=== PATIENT | female | born 1985 | race Two or more races ===

== ENCOUNTER 2024-01-06 10:07 | Outpatient (CLI) | payer OTHER | END 2024-01-06 10:08 | disposition home or self-care (01) | LOC: PRENATAL 10:07 | PROVIDERS: ATTEND Obstetrics & Gynecology Maternal & Fetal Medicine | DX: O35.9XX0 Maternal care for (suspected) fetal abnormality and damage, unspecified, not applicable or unspecified (principal); O35.3XX0 Maternal care for (suspected) damage to fetus from viral disease in mother, not applicable or unspecified; O09.519 Supervision of elderly primigravida, unspecified trimester; O99.210 Obesity complicating pregnancy, unspecified trimester; Z3A.20 20 weeks gestation of pregnancy ==

== ENCOUNTER → 2024-03-02 09:17 | Outpatient (CLI) | payer OTHER | END | disposition home or self-care (01) | LOC: PRENATAL 09:17 | PROVIDERS: ATTEND Obstetrics & Gynecology Maternal & Fetal Medicine | DX: O26.849 Uterine size-date discrepancy, unspecified trimester (principal); O09.519 Supervision of elderly primigravida, unspecified trimester; O99.210 Obesity complicating pregnancy, unspecified trimester; O99.019 Anemia complicating pregnancy, unspecified trimester; Z3A.28 28 weeks gestation of pregnancy ==

== ENCOUNTER → 2024-04-12 08:57 | Outpatient (CLI) | payer OTHER | END | disposition home or self-care (01) | LOC: PRENATAL 08:57 | PROVIDERS: ATTEND Obstetrics & Gynecology Maternal & Fetal Medicine | DX: O26.849 Uterine size-date discrepancy, unspecified trimester (principal); O36.8199 Decreased fetal movements, unspecified trimester, other fetus; O09.519 Supervision of elderly primigravida, unspecified trimester; O99.210 Obesity complicating pregnancy, unspecified trimester; Z3A.34 34 weeks gestation of pregnancy ==

== ENCOUNTER 2024-05-13 14:15 | Inpatient (IN) | payer OTHER ==
[~2024-05-13] VITALS: Ht 160 cm; Wt 3.2 kg
[2024-05-21 12:50] VITALS: BP 134/77
[2024-05-21] MEDS ORDERED: AMPICILLIN SODIUM 2,000 MG VIAL IV STA (14:00)
[2024-05-21] MEDS ORDERED: PRENATAL TABLE1 EAC1 (14:06)
[2024-05-21] MEDS ORDERED: RINGERS SOLUTION,LACTATED 1,000 ML IV SCH ×2 (14:15→20:30)
[2024-05-21] MEDS ORDERED: ECOTRIN81 MG PO (15:26)
[2024-05-21] MEDS ORDERED: IRON325 MG PO (15:27)
[2024-05-21 15:28] VITALS: BP 123/56
[2024-05-21 16:55] LABS: INR 0.94; PARTIAL THROMBOPLASTIN TIME 30.3 SECONDS (22.0-34.0); PROTHROMBIN TIME 10.3 SECONDS (9.0-11.5)
[2024-05-21] MEDS ORDERED: AMPICILLIN SODIUM 1,000 MG VIAL IV SCH (17:00)
[2024-05-21] MEDS ORDERED: PROMETHAZINE HCL 25 MG/ML AMPUL IM PRN (20:30)
[2024-05-21] MEDS ORDERED: MEPERIDINE HCL/PF 50 MG/ML VIAL IM PRN (20:30)
[2024-05-21] MEDS ORDERED: KETOROLAC TROMETHAMINE 60 MG VIAL IM STA (20:30)
[2024-05-21] MEDS ORDERED: CHLORHEXIDINE GLUCONATE 120 ML BOTTLE TP SCH (20:30)
[2024-05-21] MEDS ORDERED: OXYTOCIN 1,000 ML IV SCH (20:30)
[2024-05-21 21:44] VITALS: BP 120/77
[2024-05-21] MEDS ORDERED: ERYTHROMYCIN BASE OPHT 1GM EACH TUBE OP ONE (23:00)
[2024-05-21] MEDS ORDERED: OXYTOCIN 10 UNITS/ML VIAL IV ONE (23:00)
[2024-05-22 01:00] VITALS: BP 130/75
[2024-05-22 02:41] LABS: HEMOGLOBIN 12.2 g/dL (12.0-15.00); MEAN CELL VOLUME 74.9 fL (80.00-100.00); MEAN CORPUSCULAR HEMOGLOBIN 24.1 pg (27.00-32.0); MEAN CORPUSCULAR HGB CONC 32.2 g/dl (32.0-36.0); PLATELET COUNT 163 K/uL (150-450); RED BLOOD COUNT 5.07 M/uL (4.00-6.00); RED CELL DISTRIBUTION WIDTH 20.8 % (11.5-14.5)
[2024-05-22] MEDS ORDERED: OxyCODONE HCL/APAP UD (PERCOCET) PO PRN (09:00)
[2024-05-22 17:24] VITALS: BP 134/83
[2024-05-22 21:22] VITALS: BP 129/77
[2024-05-23] VITALS: BP 139/76
[2024-05-23 04:00] VITALS: BP 133/74
[2024-05-23 08:36] VITALS: BP 131/80
[2024-05-23 13:16] VITALS: BP 131/80
[2024-05-23 16:23] VITALS: BP 139/75
[2024-05-24 01:10] VITALS: BP 131/79
[2024-05-24] MEDS ORDERED: IBUPROFEN800 MG PO (06:38)
[2024-05-24 08:00] VITALS: BP 116/73
== END 2024-05-24 13:21 | disposition home or self-care (01) | DRG 788 ==
LOC: LDR 05-21 13:01 → OB/GYN 05-21 18:57
PROVIDERS: Obstetrics & Gynecology; ADMIT Specialist; ATTEND Specialist
PROC: 4A1HXCZ Monitoring of Products of Conception, Cardiac Rate, External Approach (ICD-10-PCS; 2024-05-21)
PROC: 10D00Z1 Extraction of Products of Conception, Low, Open Approach (ICD-10-PCS; principal; 2024-05-21 18:00)
DX: O42.02 Full-term premature rupture of membranes, onset of labor within 24 hours of rupture (principal); Z3A.39 39 weeks gestation of pregnancy; Z37.0 Single live birth; Z20.822 Contact with and (suspected) exposure to COVID-19

== ENCOUNTER 2024-05-21 11:29 | Outpatient (CLI) | payer OTHER ==
[2024-05-21 11:30] VITALS: BP 134/77
[2024-05-21] MEDS ORDERED: RINGERS SOLUTION,LACTATED 1,000 ML IV SCH (12:15)
[2024-05-21 12:43] LABS: PH,URINE 5.5 (5.0-8.0); URINE APPEARANCE Clear; URINE BILIRRUBIN Negative (NEGATIVE); URINE BLOOD Large; URINE COLOR Dark Yellow; URINE GLUCOSE Negative (NEGATIVE); URINE KETONE Trace (NEGATIVE); URINE LEUKOCYTE Trace; URINE NITRATE Negative; URINE PROTEIN 30 (NEGATIVE)
[2024-05-21 12:46] LABS: URINE BACTERIA 107.1 uL (0.0-1933); URINE EPITHELIAL CELLS 24.2 uL (0.0-38.8); URINE WBC 37.2 uL (0.0-23.2)
[2024-05-21 12:59] LABS: URINE CAST 0.15 uL (0.0-1.40)
[2024-05-21 13:13] LABS: HEMATOCRIT 38.4 % (36.0-45.00); HEMOGLOBIN 12.4 g/dL (12.0-15.00); MEAN CORPUSCULAR HEMOGLOBIN 24.1 pg (27.00-32.0); MEAN CORPUSCULAR HGB CONC 32.1 g/dl (32.0-36.0); PLATELET COUNT 161 K/uL (150-450); RED BLOOD COUNT 5.12 M/uL (4.00-6.00); RED CELL DISTRIBUTION WIDTH 20.7 % (11.5-14.5)
[2024-05-21] MEDS ORDERED: PRENATAL TABLE1 EAC1 (14:06)
[2024-05-21] MEDS ORDERED: ECOTRIN81 MG PO (15:26)
[2024-05-21] MEDS ORDERED: IRON325 MG PO (15:27)
== END 2024-05-21 13:49 | disposition still patient (30) ==
LOC: OBS/DEL 11:29
PROVIDERS: Obstetrics & Gynecology; ATTEND Specialist
DX: O26.893 Other specified pregnancy related conditions, third trimester (principal)